=== PATIENT | male | born 1985 | race Caucasian/White ===

== ENCOUNTER 2018-12-31 21:44 | Emergency (ER) | payer MEDICAID ==
[2018-12-31] MEDS ORDERED: DUONEB 0.5-3 MG/3 ml Neb IH ONE ×2 (21:47→22:07)
[2018-12-31] MEDS ORDERED: solu-MEDROL 125 MG IV ONE (21:47)
[2018-12-31] MEDS ORDERED: solu-MEDROL 125 MG ONE (22:16)
[2018-12-31 22:25] LABS: BASOPHIL % 0.3 % (0.0-0.4); Basophil (Absolute #) 0.05 (0-0.4); Eosinophil % 1.1 % (0.00-5.0); Eosinophil (Absolute #) 0.19 (0-0.5); Granulocytes % 78.5 % (36.0-66.0); Hematocrit 43.9 % (42-50); Hemoglobin 14.6 gm/dl (12.5-18.0); Lymphocytes % 11.1 % (24.0-44.0); Mean Cell Volume 91.5 fl (78-100); Mean Corpuscular Hemoglobin 30.4 pg (26-32); Mean Corpuscular Hgb Concent. 33.3 g/dl (32-36); Mean Platelet Volume 8.8 fl (6-9.5); Monocyte (Absolute #) 1.62 (0.0-1.3); Platelet Count 293 K/mm3 (150-450); Red Cell Distribution Width 13.3 % (11.5-14.0)
[2018-12-31 22:47] LABS: ALBUMIN 4.7 g/dL (3.5-5.0); ALKALINE PHOSPHATASE 129 U/L (38-126); ANION GAP 16.4 MEQ/L (5-15); BLOOD UREA NITROGEN 15 mg/dL (9-20); CHLORIDE 100 mmol/L (98-107); Calcium 9.2 mg/dL (8.4-10.2); Carbon Dioxide 25 mmol/L (22-30); Glucose 102 mg/dL (74-106); NT PRO BNP 59.1 pg/mL (0-450); Potassium 4.2 mmol/L (3.5-5.1); SGOT/AST 25 U/L (17-59); SGPT/ALT 34 U/L (0-50); SODIUM 137 mmol/L (137-145); Total Protein 8.5 g/dL (6.3-8.2)
[2018-12-31 23:10] LABS: INFLUENZA A NEGATIVE (NEGATIVE); INFLUENZA B NEGATIVE (NEGATIVE); RESPIRATORY SYNCTIAL VIRUS NEGATIVE (Negative)
[2018-12-31 23:39] LABS: Slide Review 1 YES
[2019-01-01] MEDS ORDERED: ENOXAPARIN SODIUM SQ ONE ×2 (01:42→01:52)
--- NOTE | 2019-01-01 01:50 | ERPHSYRPT ---
- History of Present Illness Source: patient Exam Limitations: no limitations Patient Subjective Stated Complaint: pt states he has asthma and has been short of breath for last hour Triage Nursing Assessment: pt alert and oriented, answers questions approp. pt ambulatory with steady gait noted, respirations nonlabored. exp wheezes noted throughout. skin pink warm and dry. Physician History: Pt is a a 33 y/o male with a h/o Asthma that presented to the ED with SOB and wheeze. Pt was leaving his girlfriend's house and was walking to [place], where his family is. He denies F/C/S, and states, has no MDIs because he can't afford it. Pt does not have a PCP as well. Pt denies chest pain or palpitations. No N/V/D or abdominal pain. Timing/Duration: today Cough Quality/Degree: mild Possible Cause: no prior episodes Modifying Factors: Improves With: activity, albuterol nebulizer, lying down, rest Associated Symptoms: denies symptoms Allergies/Adverse Reactions: No Known Drug Allergies Allergy (Verified 12/31/18 21:52) Home Medications: No Reportable Medications [No Reported Medications] 12/31/18 [History] Hx Tetanus, Diphtheria Vaccination/Date Given: No Hx Influenza Vaccination/Date Given: No Hx Pneumococcal Vaccination/Date Given: No Immunizations Up to Date: No - Review of Systems Constitutional: No Fever, No Chills Eyes: No Symptoms Ears, Nose, & Throat: No Symptoms Respiratory: Cough, Dyspnea, Dyspnea on Exertion (KHANNA), Wheezing Cardiac: No Chest Pain, No Edema, No Syncope Abdominal/Gastrointestinal: No Abdominal Pain, No Nausea, No Vomiting, No Diarrhea Genitourinary Symptoms: No Dysuria Musculoskeletal: No Back Pain, No Neck Pain Neurological: No Dizziness, No Focal Weakness, No Sensory Changes - Past Medical History Pertinent Past Medical History: Yes Respiratory History: Asthma - Past Surgical History Past Surgical History: No - Social History Smoking Status: Current every day smoker How long have you smoked: 15 yr Exposure to second hand smoke: No Drug Use: none Patient Lives Alone: (homeless) - Nursing Vital Signs Nursing Vital Signs: Initial Vital Signs Temperature 97.7 F 12/31/18 21:45 Pulse Rate 112 H 12/31/18 21:45 Respiratory Rate 20 12/31/18 21:45 Blood Pressure 128/84 12/31/18 21:45 O2 Sat by Pulse Oximetry 97 12/31/18 21:45 Pain Scale Pain Intensity 0 - Physical Exam General Appearance: mild distress (secondary to SOB and wheeze) Eye Exam: PERRL/EOMI, eyes nml inspection Ears, Nose, Throat Exam: normal ENT inspection, TMs normal, pharynx normal, moist mucous membranes Neck Exam: normal inspection, non-tender, supple, full range of motion Respiratory Exam: airway intact, diminished breath sounds, wheezing Cardiovascular Exam: regular rate/rhythm, normal heart sounds Gastrointestinal/Abdomen Exam: soft, No tenderness Extremity Exam: normal inspection, normal range of motion Neurologic Exam: alert, oriented x 3, cooperative, normal mood/affect, sensation nml, No motor deficits SpO2: 97 - CT Exams Chest CT Interpretation: Tele-radiologist Report (large R pleural effusion. R lower lobe atelectasis. Emphysematous changes) Ordered Tests: Active Orders 24 hr Category Date Time Status Football Scout STAT Care 12/31/18 21:48 Active IV Insertion STAT Care 12/31/18 21:47 Active NPO (ED) STAT Care 12/31/18 21:47 Active CHEST 2 VIEWS (PA AND LAT) Stat Exams 12/31/18 21:48 Taken CHEST WITHOUT CONTRAST [CT] Stat Exams 12/31/18 22:54 Taken CBC W DIFF Stat Lab 12/31/18 21:47 Completed CMP Stat Lab 12/31/18 21:47 Completed D-DIMER QUANTITATION Stat Lab 12/31/18 21:47 Completed NT PRO BNP Stat Lab 12/31/18 21:47 Completed Peak Expiratory Flow Rate ONCE RT 12/31/18 22:13 Active Respiratory Nebulizer STAT RT 12/31/18 21:49 Completed Respiratory Therapy Assessment DAILY RT 12/31/18 22:42 Active Medication Summary Discontinued Medications Generic Name Dose Route Start Last Admin Trade Name Freq PRN Reason Stop Dose Admin Albuterol/Ipratropium 3 ml 12/31/18 21:47 12/31/18 22:11 Duoneb 0.5-3 Mg/3 Ml Neb IH 12/31/18 21:48 3 ml STAT ONE Administration Albuterol/Ipratropium Confirm 12/31/18 22:07 Duoneb 0.5-3 Mg/3 Ml Neb Administered 12/31/18 22:08 Dose 3 ml IH .STK-MED ONE Enoxaparin Sodium 60 mg 01/01/19 01:42 Enoxaparin Sodium SQ 01/01/19 01:43 STAT ONE Methylprednisolone Sodium Succinate 125 mg 12/31/18 21:47 12/31/18 22:18 Solu-Medrol 125 Mg IV 12/31/18 21:48 125 mg STAT ONE Administration Methylprednisolone Sodium Succinate Confirm 12/31/18 22:16 Solu-Medrol 125 Mg Administered 12/31/18 22:17 Dose 125 mg .ROUTE .STK-MED ONE Lab/Rad Data: Laboratory Result Diagrams 12/31/18 21:47 12/31/18 21:47 Laboratory Results 12/31/18 12/31/18 12/31/18 Range/Units Unknown 21:47 21:47 WBC (4.0-10.5) K/mm3 RBC (4.1-5.6) M/mm3 Hgb (12.5-18.0) gm/dl Hct (42-50) % MCV (78-100) fl MCH (26-32) pg MCHC (32-36) g/dl RDW (11.5-14.0) % Plt Count (150-450) K/mm3 MPV (6-9.5) fl Gran % (36.0-66.0) % Eos # (Auto) (0-0.5) Absolute Lymphs (auto) (1.0-4.6) Absolute Monos (auto) (0.0-1.3) Lymphocytes % (24.0-44.0) % Monocytes % (0.0-12.0) % Eosinophils % (0.00-5.0) % Basophils % (0.0-0.4) % Absolute Granulocytes (1.4-6.9) Basophils # (0-0.4) D-Dimer 1622 H* (215-500) ng/mL Sodium 137 (137-145) mmol/L Potassium 4.2 (3.5-5.1) mmol/L Chloride 100 (98-107) mmol/L Carbon Dioxide 25 (22-30) mmol/L Anion Gap 16.4 H (5-15) MEQ/L BUN 15 (9-20) mg/dL Creatinine 0.90 (0.66-1.25) mg/dL Estimated GFR > 60.0 ML/MIN Glucose 102 (74-106) mg/dL Calcium 9.2 (8.4-10.2) mg/dL Total Bilirubin 0.80 (0.2-1.3) mg/dL AST 25 (17-59) U/L ALT 34 (0-50) U/L Alkaline Phosphatase 129 H (38-126) U/L NT-Pro-B Natriuret Pep 59.1 (0-450) pg/mL Serum Total Protein 8.5 H (6.3-8.2) g/dL Albumin 4.7 (3.5-5.0) g/dL Influenza Type A Ag NEGATIVE (NEGATIVE) Influenza Type B Ag NEGATIVE (NEGATIVE) RSV (PCR) NEGATIVE (Negative) Slides for Path Review 12/31/18 Range/Units 21:47 WBC 18.0 H (4.0-10.5) K/mm3 RBC 4.80 (4.1-5.6) M/mm3 Hgb 14.6 (12.5-18.0) gm/dl Hct 43.9 (42-50) % MCV 91.5 (78-100) fl MCH 30.4 (26-32) pg MCHC 33.3 (32-36) g/dl RDW 13.3 (11.5-14.0) % Plt Count 293 (150-450) K/mm3 MPV 8.8 (6-9.5) fl Gran % 78.5 H (36.0-66.0) % Eos # (Auto) 0.19 (0-0.5) Absolute Lymphs (auto) 2.00 (1.0-4.6) Absolute Monos (auto) 1.62 H (0.0-1.3) Lymphocytes % 11.1 L (24.0-44.0) % Monocytes % 9.0 (0.0-12.0) % Eosinophils % 1.1 (0.00-5.0) % Basophils % 0.3 (0.0-0.4) % Absolute Granulocytes 14.10 H (1.4-6.9) Basophils # 0.05 (0-0.4) D-Dimer (215-500) ng/mL Sodium (137-145) mmol/L Potassium (3.5-5.1) mmol/L Chloride (98-107) mmol/L Carbon Dioxide (22-30) mmol/L Anion Gap (5-15) MEQ/L BUN (9-20) mg/dL Creatinine (0.66-1.25) mg/dL Estimated GFR ML/MIN Glucose (74-106) mg/dL Calcium (8.4-10.2) mg/dL Total Bilirubin (0.2-1.3) mg/dL AST (17-59) U/L ALT (0-50) U/L Alkaline Phosphatase (38-126) U/L NT-Pro-B Natriuret Pep (0-450) pg/mL Serum Total Protein (6.3-8.2) g/dL Albumin (3.5-5.0) g/dL Influenza Type A Ag (NEGATIVE) Influenza Type B Ag (NEGATIVE) RSV (PCR) (Negative) Slides for Path Review YES - Progress Progress: improved Air Movement: fair Progress Note: 01/01/19 01:50 Pt was given Solu Medrol, nebs and labs were done. Pt has elevated WBCs, and D dimer. He is allergic to shell fish and can't have contrast dye. CT that was done shows large R pleural effusion. I discussed the pt with Dr Diaz in the ED in regional ER, and pt will be transferred, to the ED. Lovenox 60mg sq will be given as a dose for PE therapeutic. Blood Culture(s) Obtained: No Antibiotics given: No Will see patient in: other (Transfer pt to [facility] ER, Dr diaz accepts.) - Departure Time of Disposition: 01:54 Departure Disposition: Transfer (To regional ER) Clinical Impression: Pleural effusion due to another disorder Condition: Fair Critical Care Time: No Referrals: DOCTOR,NO FAMILY [Primary Care Provider] -
[2019-01-01 02:38] VITALS: BP 116/87; PULSE 75; O2SAT 97
--- NOTE | 2019-01-01 09:35 | XRAY ---
Indication: Short of breath. Comparison: None PA/lateral chest hyperinflated with small right base effusion and adjacent infiltrate/atelectasis. Remaining heart and lungs unremarkable. Bony thorax intact with minimal double curvature scoliosis.
--- NOTE | 2019-01-01 09:35 | XRAY ---
Indication: Short of breath. Elevated d-dimer. Multiple contiguous axial images obtained through the chest without contrast as ordered. Comparison: None There is small right effusion with mild right base compressive atelectasis. Tiny right lower lobe calcified granuloma. Left lower lobe demonstrates minimal interstitial alveolar opacities without consolidation or effusion. A few small bilateral bullae largest left upper lobe presumed related to emphysema. Heart is not enlarged. Aorta is normal in course and caliber. No pathologic mediastinal lymphadenopathy. Bony thorax intact with a few tiny Schmorl nodes. Limited upper abdomen including adrenal glands unremarkable. Impression: 1. Minimal left lower lobe interstitial alveolar opacities. Rule out pneumonitis. 2. Small nonspecific right effusion with right base compressive atelectasis. 3. A few bilateral bullae presumed related to emphysema. 4. Remaining CT chest without contrast exam is negative. Comment: Preliminary interpretation was made by [facility]. No critical discrepancy. CT DI 9.39
== END 2019-01-01 02:35 | disposition short-term general hospital (02) ==
LOC: ED 21:44
DX: J90 Pleural effusion, not elsewhere classified (principal)
CPT/HCPCS: 36000; 36415; 71046; 71250; 80053; 83880; 85025; 85379; 87631; 94150; 94640; 96372; 96374; 99285; J1650; J2930; A9270-GY